=== PATIENT | female | born 1945 | race Caucasian/White ===

== ENCOUNTER 2016-11-14 08:42 | Emergency (ER) | payer OTHER ==
[~2016-11-14] VITALS: Ht 160 cm; Wt 80.7 kg
[2016-11-14] MEDS ORDERED: DIPHTH,PERTUSS(ACELL),TET TOX 0.5 ML DISP.SYRIN. VAX IM ONE (09:15)
[2016-11-14] MEDS ORDERED: LIDOCAINE 1%/EPI 1:100,000 20 ML VIAL. INJ ONE (09:30)
--- NOTE | 2016-11-14 10:38 | RAD ---
CT of the head without contrast, 11/14/2016: History: Fall, pain There is moderate cerebral atrophy. There are moderate patchy lucencies in the deep white matter bilaterally. The ventricles are within normal limits in size. There is no shift of the midline structures. There is no evidence of acute intracranial hemorrhage or mass effect. IMPRESSION: 1. Moderate bilateral deep white matter lucencies compatible with chronic ischemic change. 2. Cerebral atrophy. 3. No acute intracranial abnormality is detected. CT of the cervical spine without contrast, 11/14/2016: Noncontrast scans were obtained with multiplanar reconstructions produced. There is accentuation of the normal thoracic kyphosis and cervical lordosis. There are moderate degenerative changes involving scattered facet joints bilaterally. There are mild scattered spurs at the disc levels. No fracture or dislocation is identified. The central spinal canal is well-preserved. There is mild calcific plaquing at the carotid bifurcations. IMPRESSION: 1. Mild to moderate scattered degenerative changes. 2. No acute bony abnormality is detected. PQRS Compliance Statement: One or more of the following individualized dose reduction techniques were utilized for this examination: 1. Automated exposure control 2. Adjustment of the mA and/or kV according to patient size 3. Use of iterative reconstruction technique
--- NOTE | 2016-11-14 10:51 | PHYS DOC ---
Past Medical History Past Medical History: Hypertension Past Surgical History: Other Additional Past Surgical Histo: TOE Alcohol Use: None Drug Use: None Adult General Chief Complaint Chief Complaint: LACERATION/AVULSION HPI HPI Patient is a 71 year old female presenting to the emergency department for evaluation of a head injury status post tripping and falling shortly prior to arrival. She is not sure what she tripped on however she fell and hit the left side of her forehead on a concrete floor and she does not think that she lost consciousness. Headache and neck pain however she denies any unilateral weakness numbness tingling chest abdomen back or extremity pain. She is unclear on her tetanus status was updated here. She denies being on any blood thinners at all. Review of Systems Review of Systems Constitutional: Denies fever or chills [] Eyes: Denies change in visual acuity, redness, or eye pain [] HENT: Denies nasal congestion or sore throat [] Respiratory: Denies cough or shortness of breath [] Cardiovascular: No additional information not addressed in HPI [] GI: Denies abdominal pain, nausea, vomiting, bloody stools or diarrhea [] : Denies dysuria or hematuria [] Musculoskeletal: Denies back pain or joint pain [] Integument: + laceration Current Medications Current Medications Current Medications Medications (Trade) Dose Ordered Sig/Azc Start Time Stop Time Status Last Admin Dose Admin Diphtheria/ Tetanus/Acell Pertussis (Boostrix) 0.5 ml ONCE ONCE 11/14/16 09:15 11/14/16 09:16 DC 11/14/16 09:25 0.5 ML Lidocaine/ Epinephrine (Xylocaine 1%-Epi 1:100,000) 20 ml 1X ONCE 11/14/16 09:30 11/14/16 09:31 DC 11/14/16 09:23 20 ML Allergies Allergies Allergies Coded Allergies Type Severity Reaction Last Updated Verified No Known Drug Allergies 11/14/16 No Physical Exam Physical Exam Constitutional: Well developed, well nourished, no acute distress, non-toxic appearance. [] HENT: Normocephalic, atraumatic, bilateral external ears normal, oropharynx moist, no oral exudates, nose normal. [] Eyes: PERRLA, EOMI, conjunctiva normal, no discharge. [] Neck: Normal range of motion, no tenderness, supple, no stridor. [] Cardiovascular:Heart rate regular rhythm, no murmur [] Lungs & Thorax: Bilateral breath sounds clear to auscultation [] Abdomen: Bowel sounds normal, soft, no tenderness, no masses, no pulsatile masses. [] Skin: L forehead laceration appx 2cm long Current Patient Data Vital Signs Vital Signs Date Time Temp Pulse Resp B/P Pulse Ox O2 Delivery O2 Flow Rate FiO2 11/14/16 11:28 56 14 133/62 97 Room Air 11/14/16 08:58 97.8 97.8 EKG EKG [] Radiology/Procedures Radiology/Procedures CT of the head without contrast, 11/14/2016: History: Fall, pain There is moderate cerebral atrophy. There are moderate patchy lucencies in the deep white matter bilaterally. The ventricles are within normal limits in size. There is no shift of the midline structures. There is no evidence of acute intracranial hemorrhage or mass effect. IMPRESSION: 1. Moderate bilateral deep white matter lucencies compatible with chronic ischemic change. 2. Cerebral atrophy. 3. No acute intracranial abnormality is detected. CT of the cervical spine without contrast, 11/14/2016: Noncontrast scans were obtained with multiplanar reconstructions produced. There is accentuation of the normal thoracic kyphosis and cervical lordosis. There are moderate degenerative changes involving scattered facet joints bilaterally. There are mild scattered spurs at the disc levels. No fracture or dislocation is identified. The central spinal canal is well-preserved. There is mild calcific plaquing at the carotid bifurcations. IMPRESSION: 1. Mild to moderate scattered degenerative changes. 2. No acute bony abnormality is detected. Impressions: Indication: [Left forehead laceration] Procedure: The patient was placed in the appropriate position and anesthesia around the approximately 2 mL of 1% lidocaine with epinephrine. The area was then cleaned with Betadine and irrigated with 100 mL of saline. The laceration was closed with 4 5-0 Vicryl sutures. The wound area was then dressed. Total repaired wound length: 2 cm]. The patient tolerated the procedure well. Complications: None. Course & Med Decision Making Course & Med Decision Making Pertinent Labs and Imaging studies reviewed. (See chart for details) [] Dragon Disclaimer Dragon Disclaimer This electronic medical record was generated, in whole or in part, using a voice recognition dictation system. Departure Departure Impression: Primary Impression: Laceration of face Disposition: HOME, SELF-CARE Condition: GOOD Referrals: JOESPH CORNELIUS (PCP) Patient Instructions: Facial Laceration Scripts Ondansetron (Zofran Odt)4 Mg Tab.rapdis1 Tab SL Q8HRS #10 TAB Prov:KRYSTYNA MARROQUIN DO 11/14/16 KRYSTYNA MARROQUIN DO Nov 14, 2016 10:51
[2016-11-14] MEDS ORDERED: ONDA4TAB10 SL (10:57)
[2016-11-14 11:28] VITALS: BP 133/62
== END 2016-11-14 11:20 | disposition home or self-care (01) ==
LOC: ER 08:42
DX: S01.81XA Laceration without foreign body of other part of head, initial encounter (principal); I10 Essential (primary) hypertension; W01.198A Fall on same level from slipping, tripping and stumbling with subsequent striking against other object, initial encounter; Y93.89 Activity, other specified; Y92.89 Other specified places as the place of occurrence of the external cause; Y99.8 Other external cause status
CPT/HCPCS: 12011; 70450; 72125; 90471; 90715; 99284; J3490

== ENCOUNTER 2016-11-23 09:20 | Emergency (ER) | payer OTHER ==
[~2016-11-23] VITALS: Ht 160 cm; Wt 80.7 kg
[~2016-11-23 09:20] MED LIST: ONDA4TAB10 SL
[2016-11-23 09:30] VITALS: BP 127/45
--- NOTE | 2016-11-23 09:50 | PHYS DOC ---
Past Medical History Past Medical History: Hypertension Past Surgical History: Other Additional Past Surgical Histo: TOE Alcohol Use: None Drug Use: None Adult General Chief Complaint Chief Complaint: ABDOMINAL PAIN HPI HPI Patient is a 71 year old female who presents with abdominal pain. She states it woke her up around 1:30 this morning she described it as a sharp stabbing's constant pain that lasted for approximately 20 minutes and then resolved on its own. She states it was in her bilateral upper quadrants. She states she feels like she is bloated also. She states she's been having some constipation ever since Friday of last week and she was able to give herself a suppository and had some relief. She did have a bowel movement yesterday but unsure of it was hard or not. She states normally she has 2 bowel movements daily and they're loose. She states the pain has come on several times this morning and lasted for 5 minutes and resolved by itself time. She denies any chest pain, shortness of breath. She denies any history of abdominal surgeries or constipation the past. She states currently she is not having any pain or nausea. Review of Systems Review of Systems Constitutional: Denies fever or chills [] Eyes: Denies change in visual acuity, redness, or eye pain [] HENT: Denies nasal congestion or sore throat [] Respiratory: Denies cough or shortness of breath [] Cardiovascular: No additional information not addressed in HPI [] GI: Denies abdominal pain, nausea, vomiting, bloody stools or diarrhea [] : Denies dysuria or hematuria [] Musculoskeletal: Denies back pain or joint pain [] Integument: Denies rash or skin lesions [] Neurologic: Denies headache, focal weakness or sensory changes [] Endocrine: Denies polyuria or polydipsia [] Current Medications Current Medications Current Medications Medications (Trade) Dose Ordered Sig/Zac Start Time Stop Time Status Last Admin Dose Admin Ceftriaxone Sodium 50 ml @ 100 mls/hr 1X ONCE 11/23/16 12:45 11/23/16 13:14 Info (Do NOT chart on this entry -- for MONITORING) 1 each PRN DAILY PRN 11/23/16 10:15 11/25/16 10:14 Iohexol (Omnipaque 240 Mg/ml) 50 ml 1X ONCE 11/23/16 10:00 11/23/16 10:05 DC 11/23/16 11:08 50 ML Iohexol (Omnipaque 300 Mg/ml) 75 ml 1X ONCE 11/23/16 10:00 11/23/16 10:05 DC 11/23/16 11:08 75 ML Allergies Allergies Allergies Coded Allergies Type Severity Reaction Last Updated Verified No Known Drug Allergies 11/14/16 No Physical Exam Physical Exam Constitutional: Well developed, well nourished, no acute distress, non-toxic appearance. [] HENT: Normocephalic, atraumatic, bilateral external ears normal, oropharynx moist, no oral exudates, nose normal. [] Eyes: PERRLA, EOMI, conjunctiva normal, no discharge. [] Neck: Normal range of motion, no tenderness, supple, no stridor. [] Cardiovascular:Heart rate regular rhythm, no murmur [] Lungs & Thorax: Bilateral breath sounds clear to auscultation [] Abdomen: Bowel sounds normal, soft, mildly distended, no tenderness, no masses, no pulsatile masses. [] Skin: Warm, dry, no erythema, no rash. [] Back: No tenderness, no CVA tenderness. [] Extremities: No tenderness, no cyanosis, no clubbing, ROM intact, no edema. [] Neurologic: Alert and oriented X 3, normal motor function, normal sensory function, no focal deficits noted. [] Psychologic: Affect normal, judgement normal, mood normal. [] Current Patient Data Vital Signs Vital Signs Date Time Temp Pulse Resp B/P (MAP) Pulse Ox O2 Delivery O2 Flow Rate FiO2 11/23/16 09:30 98.4 58 17 127/45 (72) 98 Room Air 98.4 Lab Values Laboratory Tests Test 11/23/16 10:00 11/23/16 10:25 Urine Collection Type Unknown Urine Color Yellow Urine Clarity Clear Urine pH 8.0 Urine Specific [place] 1.015 Urine Protein Negative mg/dL (NEG-TRACE) Urine Glucose (UA) Negative mg/dL (NEG) Urine Ketones (Stick) Negative mg/dL (NEG) Urine Blood Negative (NEG) Urine Nitrite Negative (NEG) Urine Bilirubin Negative (NEG) Urine Urobilinogen Dipstick 0.2 mg/dL (0.2 mg/dL) Urine Leukocyte Esterase Small (NEG) Urine RBC 0 /HPF (0-2) Urine WBC 1-4 /HPF (0-4) Urine Squamous Epithelial Cells Few /LPF Urine Bacteria 0 /HPF (0-FEW) White Blood Count 7.4 x10^3/uL (4.0-11.0) Red Blood Count 4.05 x10^6/uL (3.50-5.40) Hemoglobin 12.7 g/dL (12.0-15.5) Hematocrit 38.3 % (36.0-47.0) Mean Corpuscular Volume 95 fL (79-100) Mean Corpuscular Hemoglobin 31 pg (25-35) Mean Corpuscular Hemoglobin Concent 33 g/dL (31-37) Red Cell Distribution Width 13.5 % (11.5-14.5) Platelet Count 239 x10^3/uL (140-400) Neutrophils (%) (Auto) 60 % (31-73) Lymphocytes (%) (Auto) 28 % (24-48) Monocytes (%) (Auto) 8 % (0-9) Eosinophils (%) (Auto) 3 % (0-3) Basophils (%) (Auto) 1 % (0-3) Neutrophils # (Auto) 4.4 x10^3uL (1.8-7.7) Lymphocytes # (Auto) 2.1 x10^3/uL (1.0-4.8) Monocytes # (Auto) 0.6 x10^3/uL (0.0-1.1) Eosinophils # (Auto) 0.2 x10^3/uL (0.0-0.7) Basophils # (Auto) 0.1 x10^3/uL (0.0-0.2) Prothrombin Time 12.1 SEC (11.7-14.0) Prothrombin Time INR 1.0 (0.8-1.1) PTT 32 SEC (24-38) Sodium Level 141 mmol/L (136-145) Potassium Level 4.0 mmol/L (3.5-5.1) Chloride Level 102 mmol/L (98-107) Carbon Dioxide Level 33 mmol/L (21-32) H Anion Gap 6 (6-14) Blood Urea Nitrogen 20 mg/dL (7-20) Creatinine 0.6 mg/dL (0.6-1.0) Estimated GFR (Cockcroft-Gault) 98.3 Glucose Level 97 mg/dL (70-99) Calcium Level 9.3 mg/dL (8.5-10.1) Total Bilirubin 0.5 mg/dL (0.2-1.0) Direct Bilirubin 0.2 mg/dL (0.0-0.2) Aspartate Amino Transferase (AST) 31 U/L (15-37) Alanine Aminotransferase (ALT) 38 U/L (14-59) Alkaline Phosphatase 79 U/L (46-116) Creatine Kinase 117 U/L (26-192) Creatine Kinase MB (Mass) 2.2 ng/mL (0.0-3.6) Creatine Kinase MB Relative Index 1.9 % (0-4) Troponin I Quantitative < 0.017 ng/mL (0.000-0.055) Total Protein 7.6 g/dL (6.4-8.2) Albumin 3.8 g/dL (3.4-5.0) Lipase 115 U/L (73-393) Laboratory Tests 11/23/16 10:25 Laboratory Tests 11/23/16 10:25 EKG EKG [] Radiology/Procedures Radiology/Procedures [facility] [address] [place] [address] IMAGING REPORT Signed PATIENT: ELYSSA QUIROS ACCOUNT: [id number] : 1945 LOCATION: ER AGE: 71 SEX: F EXAM STATUS: REG ER ORD. PHYSICIAN: RAPHAEL VILLANUEVA MD REASON: abd pain PROCEDURE: CT ABD PELV W/ORAL&IV CONTRAST Indication generalized abdominal pain. Axial images to the abdomen and pelvis were obtained. Both IV and oral contrast were administered. 75 cc of Omnipaque 300 was administered intravenously. Note is made of a previous examination 06/29/2010. The lung bases are clear. The liver and spleen appear unremarkable. Cholelithiasis is noted. No adrenal or renal anomalies are seen. No pancreatic abnormality is seen. Acute finding in the abdomen is not apparent. No acute finding is seen in the pelvis. Moderate diverticulosis without active inflammation is seen associated with the large bowel. Degenerative changes are noted in the lumbar spine. IMPRESSION: No acute finding seen in the abdomen or pelvis PQRS Compliance Statement: One or more of the following individualized dose reduction techniques were utilized for this examination: 1. Automated exposure control 2. Adjustment of the mA and/or kV according to patient size 3. Use of iterative reconstruction technique DICTATED and SIGNED BY: JORGE PALOMINO MD DATE: 11/23/16 1137 CC: RAPHAEL VILLANUEVA MD; JOESPH CORNELIUS ~ Impressions: UTI Abdominal pain/bloating Course & Med Decision Making Course & Med Decision Making Pertinent Labs and Imaging studies reviewed. (See chart for details) Her symptoms started no night she does have symptoms for an early UTI. She received 1 g Rocephin be discharged home with [address] scan shows cholelithiasis and diverticulosis however nothing acute. Patient is also being discharged with mag citrate. She will need to follow-up with her primary care physician within a week if not better. Return precautions given she is agreeable to the plan and being discharged in stable condition this time. Dragon Disclaimer Dragon Disclaimer This electronic medical record was generated, in whole or in part, using a voice recognition dictation system. Departure Departure Impression: Primary Impression: UTI (urinary tract infection) Disposition: 01 HOME, SELF-CARE Condition: STABLE Referrals: JOESPH CORNELIUS (PCP) Patient Instructions: Urinary Tract Infection Additional Instructions: You might have a bladder infection. You're being discharged with antibiotic for next 3 days. You did receive an antibiotic in your IV prior to being discharged. If her symptoms do not get better over the next few days you can try mag citrate. Please follow the instructions on the bottle. He should follow up with her primary care physician within the next week. Return the ER for worsening pain, uncontrolled nausea, fevers or other concerns. Scripts Magnesium Citrate (MAGNESIUM CITRATE) 296 Ml Solution 296 ML PO ONCE, #296 ML drink 1/2 bottle now and if no results in 4 hours, drink remainder of bottle. Prov: RAPHAEL VILLANUEVA MD 11/23/16 Ciprofloxacin Hcl (CIPRO) 500 Mg Tablet 1 TAB PO BID, #6 TAB Prov: RAPHAEL VILLANUEVA MD 11/23/16 RAPHAEL VILLANUEVA MD November 23, 2016 09:50
[2016-11-23] MEDS ORDERED: IOHEXOL 240 MG/ML 50ML VIAL. PO ONE (10:00)
[2016-11-23] MEDS ORDERED: IOHEXOL 300 MG/ML 75 ML VIAL IV ONE (10:00)
[2016-11-23] MEDS ORDERED: CONTRAST GIVEN MC PRN (10:15)
[2016-11-23 10:51] LABS: BASO # 0.1 x10^3/uL (0.0-0.2); BASO % 1 % (0-3); EOS % 3 % (0-3); HEMATOCRIT 38.3 % (36.0-47.0); HEMOGLOBIN 12.7 g/dL (12.0-15.5); LYMPH # 2.1 x10^3/uL (1.0-4.8); LYMPH % 28 % (24-48); MEAN CORPUSCULAR HEMOGLOBIN 31 pg (25-35); MEAN CORPUSCULAR HGB CONC 33 g/dL (31-37); MEAN CORPUSCULAR VOLUME 95 fL (79-100); MONO % 8 % (0-9); NEUT % 60 % (31-73); PLATELET COUNT 239 x10^3/uL (140-400); RED BLOOD COUNT 4.05 x10^6/uL (3.50-5.40); RED CELL DISTRIBUTION WIDTH 13.5 % (11.5-14.5); WHITE BLOOD COUNT 7.4 x10^3/uL (4.0-11.0)
[2016-11-23 10:54] LABS: CALCIUM 9.3 mg/dL (8.5-10.1); CREATININE 0.6 mg/dL (0.6-1.0); GFR 98.3
[2016-11-23 10:56] LABS: PROTHROMBIN TIME PATIENT 12.1 SEC (11.7-14.0)
[2016-11-23 10:59] LABS: ALBUMIN 3.8 g/dL (3.4-5.0); DIRECT BILIRUBIN 0.2 mg/dL (0.0-0.2); TOTAL BILIRUBIN 0.5 mg/dL (0.2-1.0); TOTAL PROTEIN 7.6 g/dL (6.4-8.2)
[2016-11-23 11:07] LABS: CKMB MASS 2.2 ng/mL (0.0-3.6)
--- NOTE | 2016-11-23 11:45 | RAD ---
Indication generalized abdominal pain. Axial images to the abdomen and pelvis were obtained. Both IV and oral contrast were administered. 75 cc of Omnipaque 300 was administered intravenously. Note is made of a previous examination 06/29/2010. The lung bases are clear. The liver and spleen appear unremarkable. Cholelithiasis is noted. No adrenal or renal anomalies are seen. No pancreatic abnormality is seen. Acute finding in the abdomen is not apparent. No acute finding is seen in the pelvis. Moderate diverticulosis without active inflammation is seen associated with the large bowel. Degenerative changes are noted in the lumbar spine. IMPRESSION: No acute finding seen in the abdomen or pelvis PQRS Compliance Statement: One or more of the following individualized dose reduction techniques were utilized for this examination: 1. Automated exposure control 2. Adjustment of the mA and/or kV according to patient size 3. Use of iterative reconstruction technique
[2016-11-23 12:02] LABS: BILIRUBIN,URINE NEGATIVE (NEG); GLUCOSE,URINE NEGATIVE (NEG); NITRITE,URINE NEGATIVE (NEG); PROTEIN,URINE NEGATIVE (NEG-TRACE); UROBILINOGEN,URINE 0.2 mg/dL (0.2 mg/dL)
[2016-11-23 12:03] LABS: BACTERIA,URINE 0 /HPF (0-FEW); RBC,URINE 0 /HPF (0-2); SQUAMOUS EPITHELIAL CELL,UR FEW /LPF
[2016-11-23] MEDS ORDERED: CIPR500T94 PO (12:45)
[2016-11-23] MEDS ORDERED: MAGN296S PO (12:45)
--- NOTE | 2016-11-24 11:28 | EKG ---
[facility] [address] [place] [address] Test Date: 2016-11-23 Test Time: 10:38:48 Pat Name: ELYSSA QUIROS Department: Room: Gender: F [employer]: : 1945 Requested By: RAPHAEL VILLANUEVA Order Number: [id number] Reading MD: Lara López Measurements Intervals [place] Rate: 53 P: 53 NE: 174 QRS: 38 QRSD: 100 T: 38 QT: 422 QTc: 398 Interpretive Statements SINUS RHYTHM NO SPECIFIC ECG ABNORMALITIES RI6.01 No previous ECG available for comparison Electronically Signed On 11-24-2016 18:13:23 CDT by Lara López
== END 2016-11-23 13:55 | disposition home or self-care (01) ==
LOC: ER 09:20
DX: N39.0 Urinary tract infection, site not specified (principal); I10 Essential (primary) hypertension
CPT/HCPCS: 36415; 74177; 80048; 80076; 81001; 82553; 83690; 84484; 85027; 85610; 85730; 87086; 93005; 96365; 99285; J0690; Q9966; Q9967

== ENCOUNTER → 2020-01-05 | Outpatient (CLI) | payer MEDICARE ==
[~2020-01-05] MED LIST changes: +CIPR500T94 PO; +MAGN296S68 PO
--- NOTE | 2020-01-05 17:09 | KCIC ---
EXAM: CT Chest without IV contrast INDICATION: LUNG NODULE RLL TECHNIQUE: Multi-detector row CT images were acquired from the thoracic inlet through the upper abdomen without the use of IV contrast. Sagittal and coronal images were acquired from the transaxial data. All CT scans performed at this facility utilize dose optimization techniques as appropriate to the exam, including the following: Automated exposure control and adjustment of the mA and/or KV according to patient size (this includes techniques or standardized protocols for targeted exams where dose is indication/reason for exam). COMPARISON: Abdomen and pelvis CT of 11/23/2016. FINDINGS: The absence of IV contrast limits evaluation of soft tissue pathology. CARDIOVASCULAR: Unremarkable MEDIASTINUM & JIN: No adenopathy or masses. LUNGS: Coronal image 34 of series 4 shows a candycorn shaped thin-walled cyst at the right upper lobe containing a dress (or uvula) shaped lobulated nodule that measures 1.1 x 1.3 cm in maximum craniocaudal and mediolateral dimensions. This nodule has vessels entering and exiting it and is incompletely characterized without IV contrast. No other pulmonary nodules are identified. In particular, no right lower lobe nodules are identified on this exam. PLEURAL SPACE: No pleural effusions or pneumothorax. OSSEOUS & SOFT TISSUE: Exaggerated thoracic kyphosis. No acute or aggressive appearing osseous lesions. ABDOMEN: The visualized portions of the upper abdomen are unremarkable. IMPRESSION: Right upper lobe intracavity pulmonary nodule measuring 1.1 x 1.3 cm as described. Fleischner Society recommendations for incidental pulmonary nodules of this size are for (from initial detection) CT at 3 months, PET/CT or biopsy. This exam may potentially fulfill the recommended 3 month follow-up but correlation with any prior examinations would be helpful in establishing duration of stability (if any). Before any biopsy is contemplated, contrast enhanced imaging would be helpful to confirm this is not a highly vascular lesion that is at increased risk for bleeding complications. Electronically signed by: Ted Lockhart MD (01/05/2020 5:07 PM) [id number]
== END | disposition home or self-care (01) ==
LOC: KCIC CT 13:36
PROVIDERS: ATTEND Family Medicine
DX: R91.1 Solitary pulmonary nodule (principal); M79.89 Other specified soft tissue disorders; M40.204 Unspecified kyphosis, thoracic region; M79.604 Pain in right leg
CPT/HCPCS: 71250

== ENCOUNTER → 2020-01-28 | Outpatient (CLI) | payer MEDICARE ==
--- NOTE | 2020-01-28 12:47 | CARD ---
MR#: [id number] Date of Study: 01/28/2020 Ordering Physician: HORACE CABA, Referring Physician: HORACE CABA, Tech: Jacklyn Davis [facility] APPROVED REPORT EXAM: Two-dimensional and M-mode echocardiogram with Doppler and color Doppler. Other Information Quality : AverageHR: 51bpm Rhythm : NSR INDICATION Dyspnea Hypertension/HCVD RISK FACTORS Hypertension 2D DIMENSIONS RVDd3.6 (2.9-3.5cm)Left Atrium(2D)3.3 (1.6-4.0cm) IVSd0.7 (0.7-1.1cm)Aortic Root(2D)2.9 (2.0-3.7cm) LVDd5.3 (3.9-5.9cm)LVOT Diameter2.2 (1.8-2.4cm) PWd0.8 (0.7-1.1cm)LVDs2.8 (2.5-4.0cm) FS (%) 47.4 %SV107.8 ml LVEF(%)78.3 (>50%) Aortic Valve AoV Peak Vinayak.158.4cm/sAoV VTI38.8cm AO Peak GR.10.0mmHgLVOT Peak Vinayak.121.0cm/s AO Mean GR.4mmHgAVA (VMAX)2.87cm2 AI P 1/2 [id number] Mitral Valve MV E Ccokirdr32.3cm/sMV DECEL [id number] MV A Pmtnvkim78.7cm/sE/A Ratio0.7 MV A [id number] Pulmonary Valve PV Peak Ysenjaqf16.6cm/s Tricuspid Valve TR P. [id number]/sTR Peak Gr.25mmHg LEFT VENTRICLE The left ventricle is normal size. There is normal left ventricular wall thickness. The left ventricu lar systolic function is normal and the ejection fraction is within normal range. Ejection fraction 6 0-65%. There is normal LV segmental wall motion. The left ventricular diastolic function and filling is normal for age. RIGHT VENTRICLE The right ventricle is normal size. There is normal right ventricular wall thickness. The right ventr icular systolic function is normal. ATRIA The left atrium size is normal. The right atrium size is normal. The interatrial septum is intact wit h no evidence for an atrial septal defect or patent foramen ovale as noted on 2-D or Doppler imaging. AORTIC VALVE The aortic valve is normal in structure and function. Doppler and Color Flow revealed mild to moderat e aortic regurgitation. There is no significant aortic valvular stenosis. MITRAL VALVE The mitral valve is normal in structure and function. There is no evidence of mitral valve prolapse. There is no mitral valve stenosis. Doppler and Color-flow revealed trace mitral regurgitation. TRICUSPID VALVE The tricuspid valve is normal in structure and function. Doppler and Color Flow revealed mild tricusp id regurgitation. There is no tricuspid valve stenosis. PULMONIC VALVE Doppler and Color Flow revealed mild pulmonic valvular regurgitation. There is no pulmonic valvular s tenosis. GREAT VESSELS The aortic root is normal in size. The ascending aorta is normal in size. The pulmonary artery is nor mal. The IVC is normal in size and collapses >50% with inspiration. PERICARDIAL EFFUSION Possible left sided pleural effusion noted on limited imaging, consider further pulmonary imaging. Th ere is no evidence of significant pericardial effusion. Critical Notification Critical Value: No <Conclusion> The left ventricular systolic function is normal and the ejection fraction is within normal range. E jection fraction 60-65%. There is normal LV segmental wall motion. Doppler and Color Flow revealed mild to moderate aortic regurgitation. Possible left sided pleural effusion noted on limited imaging, consider further pulmonary imaging. Signed by : Al Ravi, Electronically Approved : 01/28/2020 12:46:54
== END | disposition home or self-care (01) ==
LOC: ECHO 10:43
PROVIDERS: ATTEND Family Medicine
DX: I08.8 Other rheumatic multiple valve diseases (principal); M79.89 Other specified soft tissue disorders
CPT/HCPCS: 93306

== ENCOUNTER 2020-02-23 19:02 | Inpatient (IN) | payer MEDICARE ==
[~2020-02-23] VITALS: Ht 160 cm; Wt 71.1 kg
[2020-02-23] MEDS ORDERED: fentaNYL PF VIAL 100 MCG/2 ML VIAL IVP ONE ×2 (19:15→20:30)
--- NOTE | 2020-02-23 19:27 | PHYS DOC ---
Past Medical History Past Medical History: Hypertension (NIDIA LIRA ROUTER OPERATOR RADIAL) Past Surgical History: Other Additional Past Surgical Histo: TOE (NIDIA LIRA [employer] OPERATOR [employer]IAL) Smoking Status: Never Smoker Alcohol Use: None Drug Use: None (NIDIA LIRA ROUTER OPERATOR RADIAL) General Adult EDM: Chief Complaint: MULTIPLE TRAUMA/FALL HPI: HPI: Patient is a 74 year old female who presents with she was at home downstairs on a concrete floor with some rug over it and her tripped and fell into her causing her to fall and hit the right back of the head and left knee. She rates her pain a 7 out of 10 and states it is aching. She denies any blood thinners, loss of consciousness, abdominal pain, nausea, vomiting, diarrhea, back pain, neck pain, vision changes, numbness or tingling, dizziness. She has a history of hypertension. She denies taking any kind of blood thinners. She states that she did took 2 Tylenols before she left her house. Patient's left knee is swollen 2-3+ but there is no deformity seen. When I asked the patient to extend the knee and I manually try to extend the knee on unable to due to the patient having pain. There does not seem to be any laxity in the joint. She is nonweightbearing as it hurts too badly to put any weight on the extremity. Patient has a small quarter sized bump and is tender with palpation. No abrasion or lacerations to the patient's body. (NIDIA LIRA ROUTER OPERATOR [employer]IAL) Review of Systems: Review of Systems: Constitutional: Denies fever or chills. [] Eyes: Denies change in visual acuity. [] HENT: Denies nasal congestion or sore throat. [] Respiratory: Denies cough or shortness of breath. [] Cardiovascular: Denies chest pain. Left knee 3+ edema. [] GI: Denies abdominal pain, nausea, vomiting, bloody stools or diarrhea. [] : Denies dysuria. [] Musculoskeletal: Denies back pain or joint pain. Fall. Left knee pain. Quarter sized bump to back of head. [] Integument: Denies rash. [] Neurologic: headache, denies focal weakness or sensory changes. [] Endocrine: Denies polyuria or polydipsia. [] Lymphatic: Denies swollen glands. [] Psychiatric: Denies depression or anxiety. [] (NIDIA LIRA APRN) Heart Score: Risk Factors: Risk Factors: DM, Current or recent (<one month) smoker, HTN, HLP, family history of CAD, obesity. Risk Scores: Score 0 - 3: 2.5% MACE over next 6 weeks - Discharge Home Score 4 - 6: 20.3% MACE over next 6 weeks - Admit for Clinical Observation Score 7 - 10: 72.7% MACE over next 6 weeks - Early Invasive Strategies (NIDIA LIRA APRN) Allergies: Allergies: Allergies Coded Allergies Type Severity Reaction Last Updated Verified No Known Drug Allergies 11/14/16 No (NIDIA LIRA APRN) Physical Exam: PE: Constitutional: Well developed, well nourished, no acute distress, non-toxic appearance. [] HENT: Normocephalic, atraumatic, bilateral external ears normal, oropharynx moist, no oral exudates, nose normal. [] Eyes: PERRLA, EOMI, conjunctiva normal, no discharge. [] Neck: Normal range of motion, no tenderness, supple, no stridor. [] Cardiovascular:Heart rate regular rhythm, no murmur [] Lungs & Thorax: Bilateral breath sounds clear to auscultation [] Abdomen: Bowel sounds normal, soft, no tenderness, no masses, no pulsatile masses. [] Skin: Warm, dry, no erythema, no rash. Quarter sized bump to back of head and tender. [] Back: No tenderness, no CVA tenderness. [] Extremities: No tenderness, no cyanosis, no clubbing, Left knee ROM not intact, Left Knee 3+ edema. [] Neurologic: Alert and oriented X 3, normal motor function, normal sensory function, no focal deficits noted. [] Psychologic: Affect normal, judgement normal, mood normal. [] (NIDIA LIRA APRN) EKG: EKG: [] (NIDIA LIRA APRN) Radiology/Procedures: Radiology/Procedures: [] Impression: [facility] [address] [place] [address] IMAGING REPORT Signed PATIENT: ELYSSA QUIROS ACCOUNT: [id number] : 1945 LOCATION: ER AGE: 74 SEX: F EXAM STATUS: REG ER ORD. PHYSICIAN: NIDIA LIRA APRN REASON: fall, swelling PROCEDURE: ANKLE LEFT 3V Exam: Left tib-fib 2 views. Left knee 3 views. Left ankle 3 views INDICATION: Fall, swelling TECHNIQUE: Frontal, lateral and oblique views of the left knee and left ankle. Frontal and lateral views the left tibia and fibula. Comparisons: None FINDINGS: Knee: There is a mildly displaced lateral tibial plateau fracture which is mildly displaced. Additionally there is a mildly displaced fracture involving the proximal diaphysis of the left fibula. Large suprapatellar effusion. Joint spaces are well-maintained. Bone mineralization is normal. Tib-fib: Bone mineralization is normal. No other fractures are identified. Soft tissues are unremarkable. Joint spaces are well-maintained. Ankle: Soft tissue swelling surrounding the left ankle. Bone mineralization is normal. No acute fractures are identified. Joint spaces are well-maintained. IMPRESSION: 1. Mildly displaced the left lateral tibial plateau fracture. 2. Mildly displaced fracture involving the proximal diaphysis of the left fibula. 3. Soft tissue swelling surrounding the left ankle. Electronically signed by: Rory Carolina MD (02/23/2020 7:50 PM) [id number] DICTATED and SIGNED BY: RORY CAROLINA MD DATE: 02/23/20 1950 [facility] [address] [place], [place] [id number] IMAGING REPORT Signed PATIENT: ELYSSA QUIROS ACCOUNT: [id number] : 1945 LOCATION: ER AGE: 74 SEX: F EXAM STATUS: REG ER ORD. PHYSICIAN: NIDIA LIRA APRN REASON: fall, HEAD INJURY PROCEDURE: CT HEAD AND CERVICAL SPINE WO CT scan of the head without contrast 02/23/2020 Clinical History: Fall with head injury. Technique: Unenhanced, contiguous, 5 mm axial sections were obtained through the head. One or more of the following individualized dose reduction techniques were utilized for this study: 1. Automated exposure control. 2. Adjustment of the mA and/or kV according to patient size. 3. Use of iterative reconstruction technique. Findings: Comparison study is dated 11/14/2016. There is generalized parenchymal atrophy. Areas of decreased attenuation are seen within the periventricular and subcortical white matter of both cerebral hemispheres consistent with areas of small vessel ischemic disease. No acute parenchymal abnormality is seen. No extra-axial fluid collection is noted. No skull fracture is seen. Impression: No acute intracranial abnormality is seen. CT scan of the cervical spine without contrast 02/23/2020 Clinical history: Fall with neck injury. Technique: Unenhanced, contiguous, 0.625 mm axial sections were obtained through the cervical spine. Axial, coronal and sagittal reconstructed images were obtained. One or more of the following individualized dose reduction techniques were utilized for this study: 1. Automated exposure control. 2. Adjustment of the mA and/or kV according to patient size. 3. Use of iterative reconstruction technique. Findings: Comparison study is dated 11/14/2016. Sagittal and coronal reconstructed images demonstrate accentuation of the cervical lordosis. There is diffuse osteopenia of the visualized bony structures. No fracture or subluxation of the cervical vertebrae is seen. Degenerative changes are seen involving the uncovertebral and facet joints throughout the cervical disc spaces. Impression: No fracture or subluxation of the cervical vertebra is identified. Electronically signed by: Marcus Hughes MD (02/23/2020 8:01 PM) [id number] DICTATED and SIGNED BY: MARCUS HUGHES MD DATE: 02/23/[address] [place] [address] [address] [place] [address] IMAGING REPORT Signed PATIENT: ELYSSA QUIROS ACCOUNT: [id number] : 1945 LOCATION: [address] [place] [address] AGE: 74 SEX: F EXAM STATUS: ADM IN ORD. PHYSICIAN: NIDIA LIRA APRN REASON: FRACTURE PROCEDURE: CT LOWER EXTREMITY WO LEFT CT LOWER EXTREMITY WO LEFT dated 02/23/2020 8:48 PM Indication:Pain after injury.Reason: FRACTURE / Spl. Instructions: / History: . Comparison: Compared to plain films dated same day. Technique: Contiguous axial imaging of the left knee was performed with thin cut coronal and sagittal reconstruction. One or more of the following individualized dose reduction techniques were utilized for this examination: 1. Automated exposure control 2. Adjustment of the mA and/or kV according to patient size 3. Use of iterative reconstruction technique Findings: There is a comminuted intra-articular split depressed fracture of the lateral tibial plateau. There is estimated 3 to 4 mm articular surface depression centrally and posteriorly. Fracture fragments extend into the tibial eminence on the medial side. No definite extension into the medial tibial plateau. There is mild displacement of lateral fracture fragments. The distal femur and proximal tibia are intact. Moderate tricompartmental hypertrophic change with small marginal osteophytes. Asymmetric medial joint space narrowing. There is a large lipoma hemarthrosis. ACL and PCL are not well evaluated based on technique but appear grossly intact. The collateral ligaments are not well evaluated. Quadriceps and patellar tendon are grossly intact. No additional soft tissue abnormality. IMPRESSION: 1. Comminuted intra-articular split depressed fracture of the lateral tibial plateau. There is estimated 3 to 4 mm articular surface depression. 2. Large lipomohemarthrosis. 3. Moderate tricompartmental DJD. Electronically signed by: John Valadez MD (02/23/2020 9:03 PM) [facility] [place] DICTATED and SIGNED BY: JOHN VALADEZ MD DATE: 02/23/202102 (NIDIA LIRA APRN) Course & Med Decision Making: Course & Med Decision Making Pertinent Labs and Imaging studies reviewed. (See chart for details) See HPI. Patient is log rolled using nursing staff help. There is no bruising, tenderness or abrasions or deformity seen or felt with palpation down the spine. No focal bony spinal tenderness. Full range of motion of the neck. There is no tenderness of the left knee. She states only when she puts pressure on the left extremity or tries to move it is painful. No pain with pelvic rock. No shortening or rotation of the extremities although the left lower leg is propped with a pillow under the knee for comfort. Abdomen is soft and nontender. Patient denies any chest pain or shortness of air. No tenderness over the rib cage or crepitus. No facial trauma. Patient is given fentanyl for pain control. Alert and oriented x4. Speaks in full complete sentences. Pedal pulses are strong and present. No tenderness with palpation over any extremity. The only joint that the patient complains of pain is the left knee. That is the only joint that she has no range of motion in due to pain. A spoken to Dr. Vasquez and he states to get a CT of the left lower extremity. He states to use a soft roll on the extremity first and then put a knee immobilizer. He states he needs to be ice. He states the patient can eat as he is not sure if he is going to need to take the patient to surgery. He states that she needs to be nonweightbearing. I have called Dr. Alexis who is on-call for Dr. Santana for admission. [] (NIDIA LIRA APRN) Course & Med Decision Making The patient was seen and interviewed as well as examined at the bedside. The chart was reviewed. The case was discussed. Agree with the plan of care. (ELISHA JAIME MD) Dragon Disclaimer: Dragon Disclaimer: This electronic medical record was generated, in whole or in part, using a voice recognition dictation system. (NIDIA LIRA APRN) Departure Departure Impression: Primary Impression: Tibial plateau fracture, left Qualified Codes: S82.142A - Displaced bicondylar fracture of left tibia, initial encounter for closed fracture Disposition: ADMITTED INPATIENT Admitting Physician: Lamonte Alexis (NIDIA LIRA APRN) Condition: STABLE Referrals: HORACE SANTANA MD (PCP) Justicifation of Admission Dx: Justifications for Admission: Justification of Admission Dx: N/A Comments: Tibial plateau fracture (NIDIA LIRA APRN) NIDIA LIRA APRN Feb 23, 2020 19:27 ELISHA JAIME MD Feb 23, 2020 20:43
--- NOTE | 2020-02-23 19:53 | RAD ---
Exam: Left tib-fib 2 views. Left knee 3 views. Left ankle 3 views INDICATION: Fall, swelling TECHNIQUE: Frontal, lateral and oblique views of the left knee and left ankle. Frontal and lateral views the left tibia and fibula. Comparisons: None FINDINGS: Knee: There is a mildly displaced lateral tibial plateau fracture which is mildly displaced. Additionally there is a mildly displaced fracture involving the proximal diaphysis of the left fibula. Large suprapatellar effusion. Joint spaces are well-maintained. Bone mineralization is normal. Tib-fib: Bone mineralization is normal. No other fractures are identified. Soft tissues are unremarkable. Joint spaces are well-maintained. Ankle: Soft tissue swelling surrounding the left ankle. Bone mineralization is normal. No acute fractures are identified. Joint spaces are well-maintained. IMPRESSION: 1. Mildly displaced the left lateral tibial plateau fracture. 2. Mildly displaced fracture involving the proximal diaphysis of the left fibula. 3. Soft tissue swelling surrounding the left ankle. Electronically signed by: Rory Messer MD (02/23/2020 7:50 PM) [id number]
--- NOTE | 2020-02-23 20:04 | RAD ---
CT scan of the head without contrast 02/23/2020 Clinical History: Fall with head injury. Technique: Unenhanced, contiguous, 5 mm axial sections were obtained through the head. One or more of the following individualized dose reduction techniques were utilized for this study: 1. Automated exposure control. 2. Adjustment of the mA and/or kV according to patient size. 3. Use of iterative reconstruction technique. Findings: Comparison study is dated 11/14/2016. There is generalized parenchymal atrophy. Areas of decreased attenuation are seen within the periventricular and subcortical white matter of both cerebral hemispheres consistent with areas of small vessel ischemic disease. No acute parenchymal abnormality is seen. No extra-axial fluid collection is noted. No skull fracture is seen. Impression: No acute intracranial abnormality is seen. CT scan of the cervical spine without contrast 02/23/2020 Clinical history: Fall with neck injury. Technique: Unenhanced, contiguous, 0.625 mm axial sections were obtained through the cervical spine. Axial, coronal and sagittal reconstructed images were obtained. One or more of the following individualized dose reduction techniques were utilized for this study: 1. Automated exposure control. 2. Adjustment of the mA and/or kV according to patient size. 3. Use of iterative reconstruction technique. Findings: Comparison study is dated 11/14/2016. Sagittal and coronal reconstructed images demonstrate accentuation of the cervical lordosis. There is diffuse osteopenia of the visualized bony structures. No fracture or subluxation of the cervical vertebrae is seen. Degenerative changes are seen involving the uncovertebral and facet joints throughout the cervical disc spaces. Impression: No fracture or subluxation of the cervical vertebra is identified. Electronically signed by: Marcus Hughes MD (02/23/2020 8:01 PM) [id number]
[2020-02-23 20:29] LABS: BASO # 0.1 x10^3/uL (0.0-0.2); BASO % 1 % (0-3); EOS # 0.1 x10^3/uL (0.0-0.7); EOS % 1 % (0-3); HEMATOCRIT 36.8 % (36.0-47.0); HEMOGLOBIN 12.5 g/dL (12.0-15.5); LYMPH # 2.5 x10^3/uL (1.0-4.8); LYMPH % 32 % (24-48); MEAN CORPUSCULAR HEMOGLOBIN 32 pg (25-35); MEAN CORPUSCULAR HGB CONC 34 g/dL (31-37); MEAN CORPUSCULAR VOLUME 94 fL (79-100); MONO # 0.8 x10^3/uL (0.0-1.1); MONO % 10 % (0-9); NEUT # 4.5 x10^3/uL (1.8-7.7); NEUT % 56 % (31-73); PLATELET COUNT 251 x10^3/uL (140-400); RED BLOOD COUNT 3.93 x10^6/uL (3.50-5.40)
[2020-02-23 20:37] LABS: CALCIUM 9.8 mg/dL (8.5-10.1); CREATININE 0.7 mg/dL (0.6-1.0); GFR 81.6
[2020-02-23 20:38] LABS: PROTHROMBIN TIME PATIENT 11.8 SEC (11.7-14.0)
[2020-02-23 20:43] LABS: ALBUMIN/GLOBULIN RATIO 1.1 (1.0-1.7); TOTAL BILIRUBIN 0.4 mg/dL (0.2-1.0); TOTAL PROTEIN 7.7 g/dL (6.4-8.2)
[2020-02-23] MEDS: ONDANSETRON PF 4 MG/2 ML VIAL. IV PRN (20:45)
--- NOTE | 2020-02-23 21:06 | RAD ---
CT LOWER EXTREMITY WO LEFT dated 02/23/2020 8:48 PM Indication:Pain after injury.Reason: FRACTURE / Spl. Instructions: / History: . Comparison: Compared to plain films dated same day. Technique: Contiguous axial imaging of the left knee was performed with thin cut coronal and sagittal reconstruction. One or more of the following individualized dose reduction techniques were utilized for this examination: 1. Automated exposure control 2. Adjustment of the mA and/or kV according to patient size 3. Use of iterative reconstruction technique Findings: There is a comminuted intra-articular split depressed fracture of the lateral tibial plateau. There is estimated 3 to 4 mm articular surface depression centrally and posteriorly. Fracture fragments extend into the tibial eminence on the medial side. No definite extension into the medial tibial plateau. There is mild displacement of lateral fracture fragments. The distal femur and proximal tibia are intact. Moderate tricompartmental hypertrophic change with small marginal osteophytes. Asymmetric medial joint space narrowing. There is a large lipoma hemarthrosis. ACL and PCL are not well evaluated based on technique but appear grossly intact. The collateral ligaments are not well evaluated. Quadriceps and patellar tendon are grossly intact. No additional soft tissue abnormality. IMPRESSION: 1. Comminuted intra-articular split depressed fracture of the lateral tibial plateau. There is estimated 3 to 4 mm articular surface depression. 2. Large lipomohemarthrosis. 3. Moderate tricompartmental DJD. Electronically signed by: John Roca MD (02/23/2020 9:03 PM) [facility]
[2020-02-23] MEDS: fentaNYL PF VIAL 100 MCG/2 ML VIAL IV PRN ×2 (22:42→23:55)
[2020-02-23 23:51] VITALS: BP 171/48
[2020-02-24] MEDS ORDERED: LOSA25TA12 PO (00:46)
[2020-02-24] MEDS: fentaNYL PF VIAL 100 MCG/2 ML VIAL IV PRN ×6 (01:12→16:20)
[2020-02-24 03:34] VITALS: BP 141/41
[2020-02-24 07:00] VITALS: BP 127/43
--- NOTE | 2020-02-24 08:58 | PDOC ---
Provider Note Provider Note [id number] Justicifation of Admission Dx: Justifications for Admission: Justification of Admission Dx: N/A KRYSTYNA LUKE MD Feb 24, 2020 08:58
--- NOTE | 2020-02-24 09:22 | HP ---
ADMIT DATE: CHIEF COMPLAINT: Fall. HISTORY OF PRESENT ILLNESS: A 74-year-old white female who is very healthy, taking only losartan for hypertension and fell after her tripped and fell on her. ER evaluation showed a comminuted fracture of the left lateral tibial plateau and Orthopedics is planning to see her today to discuss the need for surgery or not. She has had no other problems recently. PAST MEDICAL HISTORY: The only surgery she has had is foot surgery. MEDICATIONS: She takes losartan as her only medicine. ALLERGIES: No allergies. No other serious medical problems. SOCIAL HISTORY: , nonsmoker, nondrinker, physically active. is ill with myasthenia gravis. FAMILY HISTORY: Unremarkable. REVIEW OF SYSTEMS: No other complaints. OBJECTIVE: ENT: All within normal limits. NECK: No masses, nodes or bruits. LUNGS: Clear. CARDIOVASCULAR: Regular rate. No irregular beat or murmur. ABDOMEN: Benign, soft, and nontender. EXTREMITIES: She has a left leg in a knee brace. Right leg is unremarkable. Excellent distal pedal pulses. NEUROLOGIC: Physiologic and nonfocal. ASSESSMENT: Left lateral tibial plateau fracture after a fall. Otherwise, very healthy for her age. PLAN: Per orthopedic consultation. KRYSTYNA LUKE MD DR: ОЛЕГ/emilie JOB#: [id number] / [id number]
--- NOTE | 2020-02-24 09:28 | NUR ---
SW following. Discussed with RN, pt from home with , cardiac diet, room air. Awaiting confirmation of whether pt will need surgery or not. PT/OT to work with pt, will likely need SNU. SW will continue to follow. COVID-19 negative.
[2020-02-24] MEDS: LOSARTAN POTASSIUM 25 MG TABLET. PO SCH (10:01)
[2020-02-24] MEDS: POTASSIUM CL 20MEQ D5-0.45NACL 1,000 ML IV SCH (10:02)
[2020-02-24 11:00] VITALS: BP 138/40
[2020-02-24] MEDS: ONDANSETRON PF 4 MG/2 ML VIAL. IV PRN (12:46)
[2020-02-24 15:00] VITALS: BP 134/51
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
[2020-02-24 19:00] VITALS: BP 161/44
[2020-02-24 23:00] VITALS: BP 149/51
[2020-02-25] MEDS: fentaNYL PF VIAL 100 MCG/2 ML VIAL IVP PRN ×5 (02:09→22:56)
[2020-02-25 03:00] VITALS: BP 148/43
[2020-02-25] MEDS: POTASSIUM CL 20MEQ D5-0.45NACL 1,000 ML IV SCH ×3 (03:21→14:49)
[2020-02-25 07:00] VITALS: BP 162/42
[2020-02-25] MEDS: LOSARTAN POTASSIUM 25 MG TABLET. PO SCH (08:23)
--- NOTE | 2020-02-25 08:33 | PDOC ---
Provider Note Provider Note [id number] Justicifation of Admission Dx: Justifications for Admission: Justification of Admission Dx: N/A KRYSTYNA LUKE MD Feb 25, 2020 08:33
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
[2020-02-25 11:00] VITALS: BP 140/46
[2020-02-25 15:00] VITALS: BP 132/48
[2020-02-25 19:05] VITALS: BP 130/48
[2020-02-25 23:21] VITALS: BP 147/42
[2020-02-26 03:15] VITALS: BP 146/49
[2020-02-26] MEDS: fentaNYL PF VIAL 100 MCG/2 ML VIAL IVP PRN ×2 (03:49→09:22)
[2020-02-26 07:00] VITALS: BP 151/58
[2020-02-26] MEDS: POTASSIUM CL 20MEQ D5-0.45NACL 1,000 ML IV SCH (08:04)
[2020-02-26] MEDS: LOSARTAN POTASSIUM 25 MG TABLET. PO SCH (08:04)
[2020-02-26 10:51] VITALS: BP 123/33
--- NOTE | 2020-02-26 15:25 | NUR ---
Discharge Note: ELYSSA QUIROS Discharge instructions and discharge home medications reviewed with Patient and a copy given. All questions have been answered and understanding verbalized. Patient discharged home with home health. The following instructions and handouts were given: information about home health, medications, walker instructions, weight bearing status, etc. Discontinued lines and drains: IV lines in right AC and right forearm removed, catheter tips intact. Patient discharged to home with home health with , wheelchair used for mobility to discharge vehicle.
== END 2020-02-26 15:25 | disposition home health service (06) | DRG 563 ==
LOC: ER 19:02 → 4 NORTH 20:27
PROVIDERS: ADMIT Family Medicine; ATTEND Family Medicine
DX: S82.142A Displaced bicondylar fracture of left tibia, initial encounter for closed fracture (principal); I10 Essential (primary) hypertension; M19.072 Primary osteoarthritis, left ankle and foot; Z96.659 Presence of unspecified artificial knee joint; Z20.828 Contact with and (suspected) exposure to other viral communicable diseases; W18.39XA Other fall on same level, initial encounter; Y93.89 Activity, other specified; Y92.89 Other specified places as the place of occurrence of the external cause; Y99.8 Other external cause status
CPT/HCPCS: 36415; 70450; 72125; 73562; 73590; 73610; 73700; 80053; 85025; 85610; 87426; 96374; 96375; 96376; 99285; J2405; J3010; J3480; 97116-GP; 97530-GO; 97530-GP; 97535-GO; G0378; U0003-CS

== ENCOUNTER → 2020-04-13 | Outpatient (CLI) | payer MEDICARE ==
[~2020-04-13] MED LIST changes: +IOHEXOL 300 MG/ML 100ML VIAL. IV ONE; +LOSA25TA12 PO
--- NOTE | 2020-04-13 14:01 | KCIC ---
Contrast-enhanced CT scan of the chest compared to noncontrast study dated January 05, 2020 for lung nodule follow-up. TECHNIQUE: Contiguous axial CT images of the chest are obtained following administration of IV contrast. Sagittal and coronal reformations are evaluated. FINDINGS: The previously seen right upper lobe cystic abnormality with a mural nodule is redemonstrated and unchanged in size and appearance from the prior study. The nodular component in particular is stable, and measures 1 cm on coronal imaging in its craniocaudal dimension which is its greatest dimension. Bibasilar linear parenchymal scars are seen. On the right, the peripheral termination of the scars notable for new 1.2 x 0.8 cm nodular density which could reflect focal subsegmental atelectasis, adjacent airspace consolidation or developing parenchymal nodule. There is no suspicious adenopathy. Heart size within normal limits. Evaluation of the visualized upper abdominal organs is grossly unremarkable. No suspicious osteoblastic or osteolytic bone lesions. IMPRESSION: 1. Stable right upper lobe cystic lesion with a stable 1 cm solid mural nodule. 2. New nodular 1.2 cm abnormality at the peripheral aspect of the right lower lobe parenchymal scar. This could represent atelectasis, small focal area of consolidation, or developing parenchymal nodule. Given this new finding, and with benignity of both lesions favored, recommendation is for an additional three-month follow-up CT scan of the chest. Fleischner Society recommendations (Radiology 2017): SOLID NODULES Solitary solid nodule <6 mm - low-risk patient: no routine follow-up required - high-risk patient: optional CT at 12 months (particularly with suspicious nodule morphology and/or upper lobe location) Solitary solid nodule 6-8 mm - low-risk patient: CT at 6-12 months, then consider CT at 18-24 months - high risk patient: CT at 6-12 months, then if persistent CT at 18-24 months Solitary solid nodule >8 mm - consider CT at 3 months, PET/CT, or tissue sampling Multiple solid nodules <6 mm - low-risk patient: no routine follow-up required - high-risk patient: optional CT at 12 months Multiple solid nodules > or = 6 mm - low-risk patient: CT at 3-6 months, then consider CT at 18-24 months - high risk patient: CT at 3-6 months, then if persistent CT at 18-24 months SUBSOLID NODULES Solitary ground glass nodule <6 mm - no routine follow-up required Solitary ground glass nodule > or = 6 mm - CT at 6-12 months, then if persistent CT every 2 years until 5 years Solitary part solid nodule > or = 6mm - CT at 3-4 months, the if persistent and solid component remains <6 mm, annual CT until 5 years Multiple subsolid nodules <6 mm - CT at 3-6 months, then if stable consider CT at 2 and 4 years in high risk patients Multiple subsolid nodules > or = 6 mm - CT at 3-6 months, then subsequent management based on the most suspicious nodule(s) PQRS Compliance Statement: One or more of the following individualized dose reduction techniques were utilized for this examination: 1. Automated exposure control 2. Adjustment of the mA and/or kV according to patient size 3. Use of iterative reconstruction technique Electronically signed by: Cody Zambrano MD (04/13/2020 1:58 PM) [id number]
== END | disposition home or self-care (01) ==
LOC: KCIC CT 08:31
PROVIDERS: ATTEND Internal Medicine Pulmonary Disease
DX: R91.1 Solitary pulmonary nodule (principal); J98.4 Other disorders of lung
CPT/HCPCS: 71260; 82565; Q9967

== ENCOUNTER → 2020-07-10 | Outpatient (CLI) | payer MEDICARE ==
[~2020-07-10] MED LIST changes: -IOHEXOL 300 MG/ML 100ML VIAL. IV ONE
--- NOTE | 2020-07-10 17:17 | KCIC ---
PQRS Compliance Statement: One or more of the following individualized dose reduction techniques were utilized for this examinat ion: 1. Automated exposure control 2. Adjustment of the mA and/or kV according to patient size 3. Use of iterative reconstruction technique CT THORAX WO 07/10/2020 10:55 AM Indication: Follow-up lung nodules COMPARISON: CT chest 04/13/2020, 01/05/2020 TECHNIQUE: Multiple axial CT images of the chest were obtained without intravenous contrast. Coronal and sagittal reformats are provided. FINDINGS: There is a thin-walled cyst in the right lung apex with a solid nodular component measuring 10 x 7 mm , stable (series 6, image 48). Focal endobronchial nodule identified within the right upper lobe manasa uring 2.5 mm (series 6, image 106), stable dating back to 01/05/2020. 3 mm subpleural nodule identifie d in the right middle lobe (series 6, image 132). Bandlike thickening at the lateral right lung base is stable, favoring subsegmental atelectasis or scarring. Similar finding is more bandlike appearance of the left lung base. There is mild bronchial wall thickening compatible with nonspecific bronchiti s. No pleural effusions, pulmonary vascular congestion or pneumothorax. Minimal superior endplate com pression deformities at T7, T8 and T10 with up to 25 percent height loss. Heart size is within normal limits. No pericardial effusion. Thoracic aorta is normal in course and caliber. No suspicious osseo us abnormality. Visualized portions of the upper abdomen appear normal. No pathologically enlarged th oracic lymph nodes. IMPRESSION: 1. Thin-walled cyst in the right upper lobe appears stable with 10 x 7 mm mural nodule, unchanged. Fi ndings remain stable since 01/05/2020. 12/30 and follow-up chest CT may be of benefit to assess stabili ty. 2. There is bibasilar subsegmental atelectasis or scarring. No new or enlarging solid noncalcified pu lmonary nodules as detailed above. 3. Nonspecific bronchitis. Electronically signed by: Brittany Lo MD (07/10/2020 5:14 PM) [id number]
== END ==
LOC: KCIC CT 10:49
PROVIDERS: ATTEND Internal Medicine Pulmonary Disease
DX: R91.1 Solitary pulmonary nodule (principal); J40 Bronchitis, not specified as acute or chronic; M43.8X4 Other specified deforming dorsopathies, thoracic region
CPT/HCPCS: 71250

== ENCOUNTER 2020-10-10 00:59 | Emergency (ER) | payer MEDICARE ==
[~2020-10-10] VITALS: Ht 160 cm; Wt 65.9 kg
[2020-10-10] MEDS ORDERED: ONDANSETRON ODT 4 MG TAB.RAPDIS. PO ONE (01:30)
[2020-10-10] MEDS ORDERED: BUTALB/APAP/CAFEIN 50/325/40MG TABLET. PO ONE (01:30)
[2020-10-10] MEDS ORDERED: DEXAMETHASONE 4 MG TABLET PO ONE (01:30)
--- NOTE | 2020-10-10 01:59 | RAD ---
CT head without contrast PQRS statement: CT scans at this facility use dose reduction including either automated exposure cont rol, iterative reconstructions, and /or weight based radiation dosing via mA and kV modification when appropriate to reduce radiation dose to as low as reasonably achievable. HISTORY: Head pain behind the left eye. FINDINGS: There is mild generalized brain atrophy. 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 No intracranial hemorrhage, mass, hydrocephalus or infarction. Orbits, mastoids and bones are unremarkable. IMPRESSION: No acute abnormality. Electronically signed by: Seun Victor MD (10/10/2020 1:57 AM) [facility]
--- NOTE | 2020-10-10 02:36 | PHYS DOC ---
Past Medical History Past Medical History: Hypertension Past Surgical History: Other Additional Past Surgical Histo: TOE Smoking Status: Never Smoker Alcohol Use: None Drug Use: None General Adult EDM: Chief Complaint: HEADACHE HPI: HPI: Patient is a 74 year old female who presents with headache of 3 days duration. Pain is sharp and localized behind her left eye. She has already spoken with her PCP regarding this issue who desired her to receive a CT head without contrast to evaluate her symptoms. Since patients headache was not improving and have not received appointment for CT yet, decided to present today at the ED for evaluation of symptoms. Pain severity 10/28. Patient has no associated symptoms. Review of Systems: Review of Systems: Constitutional: Denies fever or chills Eyes: Denies redness or changes in vision. Reports eye pain on Left. HENT: Denies nasal congestion or sore throat Respiratory: Denies cough or shortness of breath Cardiovascular: Denies chest pain or palpitations GI: Denies abdominal pain, nausea, or vomiting : Denies dysuria or hematuria Musculoskeletal: Patient has pretibial edema bilaterally at baseline. Denies joint pain. Integument: Denies rash or skin lesions Neurologic: Denies focal weakness or sensory changes Complete systems were reviewed and found to be within normal limits, except as documented in this note. Heart Score: C/O Chest Pain: N/A Current Medications: Current Medications Medications (Trade) Dose Ordered Sig/Zac Start Time Stop Time Status Last Admin Dose Admin Acetaminophen/ Butalbital/ Caffeine (Fioricet) 1 tab 1X ONCE 10/10/20 01:30 10/10/20 01:31 DC 10/10/20 01:58 1 TAB Dexamethasone (Decadron) 10 mg 1X ONCE 10/10/20 01:30 10/10/20 01:31 DC 10/10/20 01:59 10 MG Ondansetron HCl (Zofran Odt) 4 mg 1X ONCE 10/10/20 01:30 10/10/20 01:31 DC 10/10/20 01:57 4 MG Allergies: Allergies: Allergies Coded Allergies Type Severity Reaction Last Updated Verified No Known Drug Allergies 11/14/16 No Physical Exam: PE: Constitutional: Well developed, well nourished, no acute distress, non-toxic appearance HENT: Normocephalic, atraumatic Eyes: Positive red reflex, NEVA bilaterally. Neck: Normal range of motion, no tenderness, supple Lungs & Thorax: No respiratory distress, equal chest rise and fall Abdomen: Soft, no tenderness Skin: Warm, dry, no erythema, no rash Back: No tenderness, no CVA tenderness Extremities: No tenderness, ROM intact, no edema Neurologic: Alert and oriented X 3, normal motor function, normal sensory function, no focal deficits noted. NIH stroke scale negative (see note for scoring). Psychologic: Affect normal, judgment normal Current Patient Data: Vital Signs: Vital Signs Date Time Temp Pulse Resp B/P (MAP) Pulse Ox O2 Delivery O2 Flow Rate FiO2 10/10/20 01:09 58 98 10/10/20 01:05 97.6 20 193/90 (124) Room Air 97.6 EKG: EKG: [] Radiology/Procedures: Radiology/Procedures: PROCEDURE: CT HEAD WO CONTRAST CT head without contrast PQRS statement: CT scans at this facility use dose reduction including either automated exposure control, iterative reconstructions, and /or weight based radiation dosing via mA and kV modification when appropriate to reduce radiation dose to as low as reasonably achievable. HISTORY: Head pain behind the left eye. FINDINGS: There is mild generalized brain atrophy. 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 No intracranial hemorrhage, mass, hydrocephalus or infarction. Orbits, mastoids and bones are unremarkable. IMPRESSION: No acute abnormality. Electronically signed by: Seun Victor MD (10/10/2020 1:57 AM) [facility] [place] Course & Med Decision Making: Course & Med Decision Making Patient is a 74 year old female who presents with headache of 3 days duration. Pain is sharp and localized behind her left eye. She has already spoken with her PCP regarding this issue who desired her to receive a CT head without contrast to further evaluate her symptoms. Patient decided to present today at the ED because headache was not improving and she had not yet received appointment for CT. Pain severity 4/10. NIH stroke assessment was performed (Score 0) to rule out stroke. Head and neck CT ordered to rule out acute intracranial bleed as cause for headache. Patient was hypertensive upon arrival. High blood pressure resolved without medical intervention during her stay. Pain addressed medically in the ED. Oral steroid prescribed with first dose given in ED for treatment of headache. Pertinent Labs and Imaging studies reviewed. (See chart for details). Patient stable for discharge with outpatient follow-up with PCP. Discussed findings and plan with patient and spouse, who acknowledged understanding and agreement. Prem Disclaimer: Prem Disclaimer: This electronic medical record was generated, in whole or in part, using a voice recognition dictation system. Departure Departure Impression: Primary Impression: Headache Qualified Codes: R51.9 - Headache, unspecified Disposition: 01 DC HOME SELF CARE/HOMELESS Condition: STABLE Referrals: HORACE CABA MD (PCP) OMAR RUFF MD Patient Instructions: Headache, FAQs Scripts Butalb/Acetaminophen/Caffeine ([id number] [id number]) 1 Each Tablet 1 EACH PO Q6HRS PRN for HEADACHE, #14 TAB Prov: RICHARD KWONG DO 10/10/20 NIHSS Stroke Scale NIH Stroke Scale: NIH Stroke Scale Response (Comments) Value Level of Consciousness: 0 Alert/Responsive 0 LOC Questions: 0 Answers both correctly 0 LOC Commands: 0 Performs both tasks 0 Best Gaze: 0 Normal 0 Visual: 0 No visual loss 0 Facial Palsy: 0 Normal, symmetrical 0 Motor - Left Arm 0 No drift 0 Motor - Right Arm 0 No drift 0 Motor - Left Leg 0 No drift 0 Motor: Right Leg 0 No drift 0 Limb Ataxia: 0 Absent 0 Sensory: 0 No loss 0 Best Language: 0 Normal 0 Dysathria: 0 Normal 0 Extinction and Inattention: 0 Normal 0 Total 0 RICHARD KWONG DO Oct 10, 2020 02:36
[2020-10-10 03:00] VITALS: BP 158/69
[2020-10-10] MEDS ORDERED: KETOROLAC 30 MG/ML VIAL. IM ONE (03:15)
[2020-10-10] MEDS ORDERED: BUTA1TAB23 PO (03:18)
== END 2020-10-10 03:27 | disposition home or self-care (01) ==
LOC: ER 00:59
DX: R51.9 Headache, unspecified (principal); H57.12 Ocular pain, left eye; I10 Essential (primary) hypertension; Z98.890 Other specified postprocedural states
CPT/HCPCS: 70450; 96372; 99284; J1885

== ENCOUNTER → 2020-10-13 | Outpatient (CLI) | payer MEDICARE ==
[2020-10-10 03:00] VITALS: BP 158/69
[~2020-10-13] MED LIST changes: +BUTA1TAB23 PO; +GADOTERATE 7.5 MMOL/15ML VIAL. IVP ONE
[2020-10-13 12:17] LABS: CREATININE 0.7 mg/dL (0.6-1.0); GFR 81.6
--- NOTE | 2020-10-13 14:50 | RAD ---
MRI BRAIN WO+W, MRI BRAIN WO+W History:Reason: THUNDERCLAP HEADACHES 13mL CLARISCAN / Spl. Instructions: / History: Technique: Multiplanar multisequence MRI of the brain without and with intravenous contrast. 2-D and 3-D [id number] MR venogram was performed of the brain. 3-D reconstructions were performed. Determination of any degree of stenosis is based on NASCET criteria. Comparison: October 10, 2020 Findings: MRI brain: No acute infarct. No intracranial hemorrhage. No mass effect. No hydrocephalus. No pathologic enhanc ement. Moderate brain parenchymal volume loss. Moderate foci of FLAIR hyperintensities within the hemispheric white matter, most often due to chroni c microvascular ischemia. Imaged orbits are unremarkable. Imaged paranasal sinuses and mastoid air cells are clear. MRV head: Patent superior sagittal, straight, transverse and sigmoid venous sinuses. Congenitally small left tr ansverse sinus. Impression: Brain MRI: 1. No acute intracranial abnormality. 2. Moderate nonspecific white matter changes, most often due to chronic microvascular ischemia. Brain MRV: 1. No evidence of dural venous sinus thrombosis or stenosis. Electronically signed by: Tommy Duron DO (10/13/2020 2:47 PM) [id number]
--- NOTE | 2020-10-13 14:50 | RAD ---
MRI BRAIN WO+W, MRI BRAIN WO+W History:Reason: THUNDERCLAP HEADACHES 13mL CLARISCAN / Spl. Instructions: / History: Technique: Multiplanar multisequence MRI of the brain without and with intravenous contrast. 2-D and 3-D [id number] MR venogram was performed of the brain. 3-D reconstructions were performed. Determination of any degree of stenosis is based on NASCET criteria. Comparison: October 10, 2020 Findings: MRI brain: No acute infarct. No intracranial hemorrhage. No mass effect. No hydrocephalus. No pathologic enhanc ement. Moderate brain parenchymal volume loss. Moderate foci of FLAIR hyperintensities within the hemispheric white matter, most often due to chroni c microvascular ischemia. Imaged orbits are unremarkable. Imaged paranasal sinuses and mastoid air cells are clear. MRV head: Patent superior sagittal, straight, transverse and sigmoid venous sinuses. Congenitally small left tr ansverse sinus. Impression: Brain MRI: 1. No acute intracranial abnormality. 2. Moderate nonspecific white matter changes, most often due to chronic microvascular ischemia. Brain MRV: 1. No evidence of dural venous sinus thrombosis or stenosis. Electronically signed by: Tommy Duron DO (10/13/2020 2:47 PM) [id number]
== END ==
LOC: MRI 09:53
PROVIDERS: ATTEND Family Medicine
DX: G44.53 Primary thunderclap headache (principal); I67.82 Cerebral ischemia
CPT/HCPCS: 36415; 70546; 70553; 82565; 84520; A9575